=== PATIENT | male | born 2000 ===

== ENCOUNTER 2023-11-08 05:15 | Day surgery (SDC) | payer OTHER ==
[2023-11-08] MEDS ORDERED: HEMOSTATIC MATRIX 1 KIT KIT TOP ONE (08:00)
[2023-11-08] MEDS ORDERED: CEFTRIAXONE SODIUM 2,000 MG VIAL IV ONE (08:00)
[2023-11-08] MEDS ORDERED: METRONIDAZOLE/SODIUM CHLORIDE 500 MG/100 ML PIGGYBACK IV ONE (08:00)
[2023-11-08] MEDS ORDERED: BUPIVACAINE HCL 30 ML VIAL IJ ONE (08:00)
[2023-11-08] MEDS ORDERED: POVIDONE-IODINE 118 ML BOTT TOP ONE (08:00)
[2023-11-08] MEDS ORDERED: LIDOCAINE HCL 1%/EPINEPHRINE 20ML VIAL IJ ONE (08:00)
[2023-11-08] MEDS ORDERED: DIBUCAINE 30 GM TUBE RECTAL ONE (08:00)
== END 2023-11-08 14:10 | disposition home or self-care (01) ==
LOC: CIR.AMB 05:15
PROVIDERS: ATTEND Colon & Rectal Surgery
DX: K60.1 Chronic anal fissure (principal); K60.0 Acute anal fissure; K64.4 Residual hemorrhoidal skin tags; K64.8 Other hemorrhoids; K92.2 Gastrointestinal hemorrhage, unspecified